=== PATIENT | female | born 1990 | race American Indian/Alaskan Native ===

== ENCOUNTER 2019-03-21 20:00 | Emergency (ER) | payer SELFPAY ==
--- NOTE | 2019-03-21 20:16 | Emergency Department Report ---
Blank Doc - Documentation Documentation: This is a [id number] female that presents with left breast pain. Stated feels a nodular mass to left breast. This initial assessment/diagnostic orders/clinical plan/treatment(s) is/are subject to change based on patient's health status, clinical progression and re-assessment by fellow clinical providers in the ED. Further treatment and workup at subsequent clinical providers discretion. Patient/guardians urged not to elope from the ED as their condition may be serious if not clinically assessed and managed. Initial orders include: 1- Patient sent to [facility] for further evaluation and treatment 2- UA
[2019-03-21 20:20] VITALS: BP 146/101
[2019-03-21 21:59] LABS: Bilirubin,Urine NEG (Negative); Blood,Urine LG (Negative); Color,Urine Yellow (Yellow); Mucus,Urine 2+ /HPF; Protein,Urine <15 mg/dL mg/dL (Negative)
[2019-03-21 22:02] LABS: HCG Qualitative,Urine Negative (Negative)
== END 2019-03-21 23:43 | disposition left against medical advice (07) ==
LOC: ED 20:00
DX: N64.4 Mastodynia (principal); Z53.21 Procedure and treatment not carried out due to patient leaving prior to being seen by health care provider
CPT/HCPCS: 81001; 81025